=== PATIENT | male | born 1950 | race Caucasian/White ===

== ENCOUNTER 2017-03-31 07:05 | Outpatient (CLI) | payer MEDICARE, OTHER | END 2017-03-31 07:06 | disposition home or self-care (01) | LOC: NAV LABSP 07:05 | PROVIDERS: ATTEND Internal Medicine | DX: D64.9 Anemia, unspecified (principal) | CPT/HCPCS: 82274 ==

== ENCOUNTER 2017-04-02 13:07 | Observation (INO) | payer MEDICARE, OTHER ==
[2017-04-02] MEDS ORDERED: Acetaminophen 325 MG TAB PO PRN ×2 (14:21→14:23)
[2017-04-02] MEDS ORDERED: Ondansetron ODT 4 MG TAB PO PRN (14:21)
[2017-04-02] MEDS ORDERED: Loperamide HCl 2 MG CAP PO PRN ×2 (14:21→14:39)
[2017-04-02] MEDS ORDERED: Milk Of Magnesia 30 ML UDCUP PO PRN (14:23)
[2017-04-02] MEDS ORDERED: Non-Formulary Item 1 EACH (Loperamide Hcl [Loperamide] 2 MG) PO PRN (14:23)
[2017-04-02] MEDS ORDERED: Dextrose 50% Abboject 50 ML SYRINGE SLOW IVP PRN (14:25)
[2017-04-02] MEDS ORDERED: Dextrose 5% in Water 1,000 ML IV PRN (14:25)
[2017-04-02 15:19] LABS: Hemoglobin 7.3 g/dL (14.0-18.0); Mean Corpuscular HGB CONC 28.9 g/dL (32.0-36.0); Mean Corpuscular Volume 62.4 fl (80.0-94.0); Mean Platelet Volume 6.2 fL (7.4-10.4); Platelet Count 347 thou/uL (130-400); RBC Distribution Width 15.7 % (11.5-14.5); Red Blood Cell (RBC) Count 4.03 mill/uL (4.70-6.10)
[2017-04-02 15:25] LABS: ALT (SGPT) Less than 6 U/L (8-55); AST (SGOT) 7 U/L (5-34); Albumin 3.4 g/dL (3.4-4.8); Alkaline Phosphatase 59 U/L (40-150); Anion Gap 12 mmol/L (10-20); BUN (Urea Nitrogen) 18 mg/dL (8.4-25.7); Bilirubin, Total 0.2 mg/dL (0.2-1.2); Calc. Creatinine Clearance 0 mL/min (70-130); Calcium 8.4 mg/dL (7.8-10.44); Carbon Dioxide 24 mmol/L (23-31); Chloride 108 mmol/L (98-107); Estimated GFR-MDRD 69; Globulin 2.4 g/dL (2.4-3.5); Glucose 151 mg/dL (80-115); Potassium 4.6 mmol/L (3.5-5.1); Protein, Total 5.8 g/dL (5.8-8.1); Sodium 139 mmol/L (136-145)
[2017-04-02] MEDS: Metoclopramide HCl 10 MG TAB PO SCH ×2 (15:30→21:19)
[2017-04-02 15:55] LABS: Anisocytosis SLIGHT = 6-15 cells (100X) (0-5/hpf); Burr Cells SLIGHT = 2-5 cells (100X) (0-1/hpf); Hypochromia MODERATE=16-30 cells (100X) (0-5/hpf); MDiff Complete? YES; Microcytosis MODERATE=15-30 cells (100X) (0-5/hpf); PLT Morphology Comment Appears Adequate; Poikilocytosis MODERATE=16-30 cells (100X) (0-5/hpf); Target Cells MODERATE= 6-15 cells (100X) (0-1/hpf)
[2017-04-02 16:09] LABS: #Basophils 0.1 thou/uL (0.0-0.2); #Eosinphils 0.4 thou/uL (0.0-0.7); #Lymphocytes 2.3 thou/uL (1.20-3.40); #Monocytes 0.7 thou/uL (0.11-0.59); #Neutrophils 7.5 thou/uL (1.40-6.50); %Eosinophils 3.9 % (0.0-10.0); %Lymphocytes 20.6 % (21.0-51.0); %Monocytes 6.3 % (0.0-10.0); %Neutrophils 68.2 % (42.0-75.0)
[2017-04-02] MEDS: Insulin Regular 300 UNITS/3 ML VIAL SC SCH (16:59)
[2017-04-02] MEDS ORDERED: Insulin Regular 300 UNITS/3 ML VIAL SC SCH (17:00)
[2017-04-02 19:45] VITALS: BMI 32.3
[2017-04-02 20:30] LABS: Hemoglobin 8.7 g/dL (14.0-18.0)
[2017-04-02 21:14] LABS: Reticulocyte Count 1.2 % (0.5-1.5)
[2017-04-02] MEDS: Famotidine 20 MG TAB PO SCH (21:19)
[2017-04-02] MEDS: Carvedilol 6.25 MG TAB PO SCH (21:19)
[2017-04-02 21:41] LABS: Folate (Folic Acid) 8.9 ng/mL (7.0-31.4)
[2017-04-03 00:08] LABS: Hemoglobin 10.3 g/dL (14.0-18.0)
--- NOTE | 2017-04-03 07:56 | SS ---
DATE OF PLACEMENT IN [facility]: 04/02/2017 DATE OF DISCHARGE: 04/03/2017, back to the [facility]. FINAL DIAGNOSES: 1. Recurrent iron deficiency anemia requiring transfusion. 2. Diabetes type 2, well controlled with insulin. 3. Hypertension, controlled to goal. 4. Coronary artery disease, status post coronary bypass graft with stable angina on medical treatme nt. 5. 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 6. History of atrial flutter, status post ablation and control with medication. 7. History of gout. HOSPITAL COURSE: The patient is a very pleasant 66-year-old white male living at the [facility] to his dense right hemiparesis from his previous CVA who has had complications of arteriosc lerotic cardiovascular disease with coronary bypass graft, recurrent angina controlled with medicati on, atrial flutter, status post ablation, but who has been doing very well, but has been slowly beco radha more anemic. He was found to be significantly iron deficient, initially was also found to be B 12 and folate deficient. He has not been on any blood thinners other than Plavix and aspirin. He h as not had an EGD or colonoscopy. He has had no abdominal pain. He has been on Protonix at the [facility]. He was admitted to the [facility] for transfusion as his hemoglobin was found to b e 7.3 on admission with a hematocrit of 25, white count 11,000. He has been on iron supplementation for the last week, but his previous iron level was low at 14 last week. PHYSICAL EXAMINATION: VITAL SIGNS: He has been hemodynamically stable with admission blood pressure 142/65, O2 sat 92%, r espirations 20, pulse 78, afebrile. LUNGS: His lungs were clear. CARDIAC: Cardiac examination showed regular rhythm. There was an S4. ABDOMEN: Soft and nontender. SKIN AND EXTREMITIES: Skin and extremities showed no edema. NEUROLOGIC: Showed the right hemiparesis, but the patient was alert and oriented, did become somewh at confused during the night. LABORATORY: Other laboratories mentioned above showed him to have a sodium 139, potassium 4.6, chlo ride 108, bicarbonate 24, BUN 18, creatinine 1.06, glucose 151, calcium 8.4, AST 7, ALT 6. He was typed and cross matched, given 2 units of packed cells. He was continued on his home medicat ions of Tylenol as needed, Allopurinol 300 daily, aspirin 81 daily, carvedilol 6.25 twice daily, Daisha vix 75 daily, finasteride 5 daily, Lantus 7 units subcutaneous q.a.m. with Novolin R 12 units before meals, lisinopril 20 daily, Reglan 10 three times daily, Protonix 40 daily. He had no complications with the 2 units of packed cells. His hemoglobin increased to 10.3 with hem atocrit 34. His vital signs remained stable with a blood pressure 128/76, pulse 80, afebrile, O2 sa t 97% on room air. He was at baseline mental status, felt well and as he was treated medically as far as possible, will be discharged back to the [facility] and we will discuss further evaluation with possible outpati ent EGD and colonoscopy with family. He will be continued on his Plavix and aspirin because of his significant coronary artery disease and will be continued on his Protonix and Pepcid.
[2017-04-03] MEDS: Insulin Regular 300 UNITS/3 ML VIAL SC SCH (08:00)
[2017-04-03] MEDS ORDERED: Finasteride 5 MG TAB PO SCH (09:00)
[2017-04-03] MEDS ORDERED: Lisinopril 20 MG TAB PO SCH (09:00)
[2017-04-03] MEDS ORDERED: Clopidogrel Bisulfate 75 MG TAB PO SCH (09:00)
[2017-04-03] MEDS ORDERED: Levemir Flexpen 100 UNITS/ML PEN SC SCH (09:00)
[2017-04-03] MEDS ORDERED: Multivitamin W/ Minerals 1 TAB PO SCH (09:00)
[2017-04-03] MEDS ORDERED: Allopurinol 300 MG TAB PO SCH (09:00)
[2017-04-03] MEDS ORDERED: Non-Formulary Item 1 EACH (Multivitamin [Multi-Vitamin Daily] 1 TABLET) PO SCH (09:00)
[2017-04-03] MEDS ORDERED: Non-Formulary Item 1 EACH (Insulin Glargine,Hum.Rec.Anlog 70 UNIT) SQ SCH (09:00)
[2017-04-03] MEDS: Famotidine 20 MG TAB PO SCH (09:20)
[2017-04-03] MEDS: Metoclopramide HCl 10 MG TAB PO SCH (09:20)
[2017-04-03] MEDS: Carvedilol 6.25 MG TAB PO SCH (09:21)
[2017-04-03 10:20] VITALS: BP 128/80
[2017-04-03 10:38] VITALS: TEMP 98
[2017-04-03] MEDS ORDERED: Metoclopramide HCl 10 MG TAB PO SCH (11:30)
[2017-04-03] MEDS ORDERED: Allopurinol 100 MG TAB PO SCH (11:30)
[2017-04-04] MEDS ORDERED: Allopurinol 100 MG TAB PO SCH (09:00)
== END 2017-04-03 11:35 ==
LOC: NAV ACUTE 13:07
PROVIDERS: ADMIT Internal Medicine; ATTEND Internal Medicine
DX: D50.9 Iron deficiency anemia, unspecified (principal); E11.9 Type 2 diabetes mellitus without complications; I10 Essential (primary) hypertension; I25.10 Atherosclerotic heart disease of native coronary artery without angina pectoris; I69.351 Hemiplegia and hemiparesis following cerebral infarction affecting right dominant side; I48.92 Unspecified atrial flutter; M10.9 Gout, unspecified; Z79.82 Long term (current) use of aspirin; Z79.899 Other long term (current) drug therapy; Z95.1 Presence of aortocoronary bypass graft; Z86.73 Personal history of transient ischemic attack (TIA), and cerebral infarction without residual deficits
CPT/HCPCS: 36415; 36416; 36430; 80053; 82607; 82746; 85025; 85046; 86850; 86900; 86901; G0378; J1815; P9016

== ENCOUNTER 2018-02-02 13:35 | Emergency (ER) | payer MEDICARE, OTHER ==
--- NOTE | 2018-02-02 14:15 | RAD ---
PORTABLE CHEST 1 VIEW: DATE: 02/02/18. TIME: 1:52 p.m. HISTORY: Dyspnea. FINDINGS: There are no previous exams for comparison. There are changes of median sternotomy. The heart is en larged. There is pulmonary vascular congestion. No pneumothoraces, lobar consolidation, or large ef fusions are seen. POS: [facility]
[2018-02-02 14:41] LABS: #Basophils 0.1 thou/uL (0.0-0.2); #Lymphocytes 1.6 thou/uL (1.20-3.40); #Monocytes 1.3 thou/uL (0.11-0.59); #Neutrophils 12.4 thou/uL (1.40-6.50); %Basophils 0.4 % (0.0-1.0); %Eosinophils 0.1 % (0.0-10.0); %Lymphocytes 10.5 % (21.0-51.0); %Monocytes 8.4 % (0.0-10.0); %Neutrophils 80.5 % (42.0-75.0); Hemoglobin 7.5 g/dL (14.0-18.0); Mean Corpuscular HGB CONC 28.2 g/dL (32.0-36.0); Mean Corpuscular Volume 60.1 fL (78.0-98.0); Mean Platelet Volume 5.9 fL (7.4-10.4); Platelet Count 350 thou/uL (130-400); RBC Distribution Width 16.3 % (11.5-14.5); Red Blood Cell (RBC) Count 4.41 mill/uL (4.70-6.10); White Blood Cell (WBC) Count 15.4 thou/uL (4.8-10.8)
[2018-02-02 15:01] LABS: ALT (SGPT) 9 U/L (8-55); AST (SGOT) 24 U/L (5-34); Albumin 3.5 g/dL (3.4-4.8); Alkaline Phosphatase 75 U/L (40-150); Anion Gap 14 mmol/L (10-20); BUN (Urea Nitrogen) 14 mg/dL (8.4-25.7); Bilirubin, Total 0.4 mg/dL (0.2-1.2); CK (CPK) 185 U/L (30-200); Calc. Creatinine Clearance 0 mL/min (70-130); Calcium 8.7 mg/dL (7.8-10.44); Carbon Dioxide 20 mmol/L (23-31); Chloride 107 mmol/L (98-107); Estimated GFR-MDRD 64; Glucose 299 mg/dL (80-115); Lipase 18 U/L (8-78); Potassium 4.4 mmol/L (3.5-5.1); Protein, Total 6.5 g/dL (5.8-8.1); Sodium 137 mmol/L (136-145)
[2018-02-02 15:02] LABS: Hypochromia SLIGHT = 6-15 cells (100X) (0-5/hpf); MDiff Complete? YES; Microcytosis MODERATE=15-30 cells (100X) (0-5/hpf); PLT Morphology Comment Appears Adequate; Poikilocytosis SLIGHT = 6-15 cells (100X) (0-5/hpf)
[2018-02-02 15:10] LABS: CKMB 10.4 ng/mL (0-6.6); Troponin I 17.998 ng/mL (< 0.028)
[2018-02-02] MEDS ORDERED: Enoxaparin Sodium 100 MG/ML SYRINGE ONE (15:46)
[2018-02-02] MEDS ORDERED: Furosemide 40 MG/4 ML VIAL ONE (15:47)
== END 2018-02-02 16:25 | disposition short-term general hospital (02) ==
LOC: NAV ERS 13:35
DX: I21.4 Non-ST elevation (NSTEMI) myocardial infarction (principal); I11.0 Hypertensive heart disease with heart failure; I50.9 Heart failure, unspecified; M10.9 Gout, unspecified; E11.22 Type 2 diabetes mellitus with diabetic chronic kidney disease; K21.9 Gastro-esophageal reflux disease without esophagitis; F32.9 Major depressive disorder, single episode, unspecified; Z79.899 Other long term (current) drug therapy; Z79.82 Long term (current) use of aspirin; Z79.891 Long term (current) use of opiate analgesic
CPT/HCPCS: 36415; 71045; 80053; 82550; 82553; 83605; 83690; 83880; 84484; 85025; 93005; 96372; 96374; J1650; J1940; J7620

== ENCOUNTER 2018-08-30 09:07 | Emergency (ER) | payer MEDICARE, MEDICAID ==
[~2018-08-30 09:07] MED LIST: Iopamidol 370 76% 100 ML VIAL ONE
--- NOTE | 2018-08-30 09:30 | CT ---
CT BRAIN WITHOUT CONTRAST: Date: 08/30/18 HISTORY: Right-sided weakness, left-sided weakness. FINDINGS: Comparison made with exam of 02/06/18. Changes of cortical atrophy, chronic small vessel ischemic disease, and old lacunar infarctions in th e deep lowe nuclei are stable. No evidence of acute infarct, hemorrhage, midline shift, or abnormal e xtra-axial fluid collections are seen. The bony calvarium is intact. IMPRESSION: No CT evidence of acute intracranial process. Discussed over the telephone with Gibran Wong at 0919 hours. CODE CR. POS: OFF
[2018-08-30 09:31] LABS: INR-International Normal Ratio 1.1; PTT 36.1 SEC (22.9-36.1); Prothrombin Time 14.5 SEC (12.0-14.7)
[2018-08-30] MEDS ORDERED: Esmolol 2,500 MG/250 ML 250 ML ONE (09:36)
[2018-08-30 09:37] LABS: #Basophils 0.1 thou/uL (0.0-0.2); #Eosinphils 0.3 thou/uL (0.0-0.7); #Lymphocytes 1.9 thou/uL (1.20-3.40); #Monocytes 0.6 thou/uL (0.11-0.59); #Neutrophils 7.2 thou/uL (1.40-6.50); %Basophils 0.9 % (0.0-1.0); %Eosinophils 3.2 % (0.0-10.0); %Lymphocytes 19.1 % (21.0-51.0); %Monocytes 5.9 % (0.0-10.0); %Neutrophils 70.9 % (42.0-75.0); Anisocytosis SLIGHT = 6-15 cells (100X) (0-5/hpf); Hemoglobin 10.9 g/dL (14.0-18.0); MDiff Complete? YES; Mean Corpuscular HGB CONC 30.4 g/dL (32.0-36.0); Mean Corpuscular Hemoglobin 22.8 pg (27.0-31.0); Mean Platelet Volume 6.7 fL (7.4-10.4); Microcytosis SLIGHT = 6-15 cells (100X) (0-5/hpf); Platelet Count 257 thou/uL (130-400); RBC Distribution Width 17.2 % (11.5-14.5); Red Blood Cell (RBC) Count 4.77 mill/uL (4.70-6.10); White Blood Cell (WBC) Count 10.1 thou/uL (4.8-10.8)
[2018-08-30 09:42] LABS: ALT (SGPT) 8 U/L (8-55); AST (SGOT) 16 U/L (5-34); Albumin 3.5 g/dL (3.4-4.8); Alkaline Phosphatase 77 U/L (40-150); Anion Gap 13 mmol/L (10-20); BUN (Urea Nitrogen) 11 mg/dL (8.4-25.7); Bilirubin, Total 0.5 mg/dL (0.2-1.2); Calc. Creatinine Clearance 0 mL/min (70-130); Calcium 9.1 mg/dL (7.8-10.44); Carbon Dioxide 24 mmol/L (23-31); Chloride 108 mmol/L (98-107); Estimated GFR-MDRD 88; Globulin 2.8 g/dL (2.4-3.5); Glucose 124 mg/dL (80-115); Potassium 3.5 mmol/L (3.5-5.1); Protein, Total 6.3 g/dL (5.8-8.1); Sodium 141 mmol/L (136-145)
[2018-08-30] MEDS ORDERED: Midazolam HCl 5 mg/ml Vial ONE ×2 (09:59→10:28)
[2018-08-30 10:32] LABS: CKMB 2.3 ng/mL (0-6.6)
--- NOTE | 2018-08-30 10:48 | CT ---
CT ANGIOGRAM OF HEAD CT ANGIOGRAM OF NECK: Date: 08/30/18 HISTORY: Left-sided weakness today. Previous right-sided weakness. COMPARISON: None. TECHNIQUE: CT angiogram of the head and neck are performed in the axial plane. Three-dimensional reformatted blanche ges are submitted for interpretation. FINDINGS: There appears to be preservation of cortical lowe-white matter differentiation. Hypodensity due to ch ronic small vessel ischemic changes are identified. Calvarium is intact. Adequate aeration of the sinuses and mastoid air cells. Minimal mucosal disease in the maxillary sinuses. Bilateral ocular lenses are appropriately located. Both globes are intact. Retrobulbar fat is preserv ed. Symmetric attenuation of the optic nerves and ocular rectus muscles. No obvious masses in the oral cavity. Evaluation is limited by dental amalgam artifact. Midline fatty raphe of the tongue is preserved. Symmetric attenuation of the parotid and submandibular glands. Symmetric attenuation of the sternocleidomastoid muscles. No evidence of lymphadenopathy by size criteria. Cervical spine vertebral body height is maintained. There is no fracture. Upper mediastinum and lung apices are unremarkable. CT ANGIOGRAM OF NECK: Limited evaluation of the aorta due to suboptimal contrast opacification. Right carotid: Limited evaluation of the carotid artery origin. Limited evaluation of the right mcdaniel tid due to motion degradation. There is atherosclerosis in the carotid bifurcation and proximal inter nal carotid artery without significant stenosis based upon NASCET criteria. Left carotid: Limited evaluation of the left carotid artery origin. There is atherosclerosis involvi ng the carotid bifurcation without significant stenosis based upon NASCET criteria. Bilateral subclavian arteries are unremarkable. Bilateral cervical vertebral arteries are unremarkabl e. CT ANGIOGRAM OF HEAD: There is atherosclerosis with mild narrowing of both cavernous segments. Anterior circulation: There is symmetric enhancement and luminal diameter of the A1 and M1 segments. Proximal A2 segments and proximal MCA branches are unremarkable. Posterior circulation: There is atherosclerosis with lack of enhancement involving the intracranial right vertebral artery. There is short segment severe stenosis involving the intracranial left verteb ral artery. There is absence of contrast opacifying the proximal and mid portion of the basilar arter y. There is some enhancement of the distal aspect of the basilar artery and bilateral P1 segments, li seamus due to collateral flow from bilateral posterior communicating arteries. 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 Further evaluation with brain MRI is recommended to exclude a posterior circulation infarct. Results of study discussed with Gibran Wong on 08/30/18 at 1029 hours. CODE CR. POS: [facility]
== END 2018-08-30 10:39 | disposition short-term general hospital (02) ==
LOC: NAV ERS 09:07
DX: I63.9 Cerebral infarction, unspecified (principal); D64.9 Anemia, unspecified; I11.0 Hypertensive heart disease with heart failure; I50.40 Unspecified combined systolic (congestive) and diastolic (congestive) heart failure; E11.9 Type 2 diabetes mellitus without complications; K21.9 Gastro-esophageal reflux disease without esophagitis; E78.5 Hyperlipidemia, unspecified; F32.9 Major depressive disorder, single episode, unspecified
CPT/HCPCS: 31500; 36416; 70450; 70496; 70498; 80053; 82553; 84484; 85025; 85610; 85730; 93005; 96365; 96375; 96376; J2250; J2997; Q9967